=== PATIENT | female | born 1960 | race American Indian/Alaskan Native ===

== ENCOUNTER 2022-02-02 08:47 | Outpatient (CLI) | payer BC ==
[2022-02-02] MEDS ORDERED: REGADENOSON 0.4 MG/5 ML INJ IV ONE ×2 (09:36→10:00)
--- NOTE | 2022-02-02 12:50 | Nuclear Medicine Report ---
APPROVED REPORT Exam: Nuclear Stress Test Indication: Chest pain Patient Location: outpatient Room #: STRESS LAB 2 Ht: 5 ft 1 in Wt: 148 lbs BSA: 1.66 m2 HR: 71 bpmBP: 130/59 mmHgBMI: 27.96 Rhythm: SINUS RHYTHM, RIGHT VENTRICULAR CONDUCTION DELAY, ST ELEVATION CONSISTENT WITH EPICARDIAL INJURY, PERICARDITIS OR EARLY REPOLARIZATION Stress Test Details Stress Test: Pharmacologic stress testing performed using 0.4 mg of regadenoson per 5 mL given IV over 10 seconds. Reason for pharmacologic stress test: physical limitation. HR Resting HR: 71 bpm Max HR Achieved: 106 bpm Max Heart Rate (APMHR): 159 bpm Target HR (85% APMHR): 135 bpm % of APMHR: 66 Recovery HR: 102 bpm BP Resting BP: 130/59 mmHg Max BP: 137/63 mmHg Recovery BP: 130/63 mmHg ECG Resting ECG: Sinus Rhythm,LVH with repolarization abnormalities noted.T wave inversin noted in inferolateral leads. Stress ECG: Sinus Tachycardia ST Change: Horizontal ST depression in inferolateral leads. Arrhythmia: None Recovery ECG: Sinus Rhythm Recovery ST Change: Downsloping ST depression Recovery Arrhythmia: None Clinical Reason for Termination: Completed protocol Stress Symptoms: None NM EXAM: Myocardial Perfusion REST/STRESS Imaging Protocol: Rest Tc-99m/Stress Tc-99m 1 day Resting Data Rest SPECT myocardial perfusion imaging was performed in supine position 45 minutes following the intravenous injection of 10 mCi of Tc-99m Myoview. Time of rest injection: 0930 Pharmacologic Stress Pharmacologic stress test was performed by injecting Regadenoson 0.4 mg IV push followed by the intravenous injection of 28 mCi of Tc-99m Myoview. Time of stress injection: Gated Stress SPECT was performed 30 minutes after stress injection. The images were gated to evaluate regional wall motion and calculate left ventricular ejection fraction. Study Quality Study: excellent Lung Uptake: Normal Study Data TID = 1.32. Perfusion Wall Motion The rest and stress images show normal left ventricular wall motion.Post stress EF of 72% noted. Nuclear Conclusion ECG Findings: positive for ischemia Clinical Findings: negative for ischemia Nuclear Findings: negative for ischemia Exercise Capacity: not assessed Left Ventricular Function: normal Risk Study: low TID ratio is abnormal,1.32,significance of this is not clear with normal EF and no significant reversible defects.Correlate clinically.
== END 2022-02-02 08:48 | disposition home or self-care (01) ==
LOC: CARD 08:47
PROVIDERS: ATTEND Internal Medicine Cardiovascular Disease
DX: R94.31 Abnormal electrocardiogram [ECG] [EKG] (principal); R00.0 Tachycardia, unspecified; R07.9 Chest pain, unspecified
CPT/HCPCS: 78452; 93017; A9502; J2785